=== PATIENT | female | born 1950 | race Caucasian/White ===

== ENCOUNTER 2017-05-04 08:12 | Day surgery (SDC) | payer MEDICARE ==
[~2017-05-04] VITALS: Ht 170.2 cm; Wt 122.7 kg
[2017-05-04 08:36] VITALS: BP 162/79
[2017-05-04] MEDS ORDERED: SITA1TBM PO (08:41)
[2017-05-04] MEDS ORDERED: METO5TAB5 PO (08:41)
[2017-05-04] MEDS ORDERED: DOXY100C2 PO (08:41)
[2017-05-04] MEDS ORDERED: SPIR25TA3 PO (08:41)
[2017-05-04] MEDS ORDERED: FURO40TA6 PO (08:41)
[2017-05-04] MEDS ORDERED: [UNRECOGNIZED DRUG - CODE] OP (08:55)
[2017-05-04] MEDS ORDERED: CALC0.25 PO (08:55)
[2017-05-04] MEDS ORDERED: CALC667C PO (08:55)
[2017-05-04] MEDS ORDERED: ALLO100T30 PO (08:55)
[2017-05-04] MEDS ORDERED: ATOR20TA9 PO (08:55)
[2017-05-04] MEDS ORDERED: LIRA0.6P SC (08:55)
[2017-05-04] MEDS ORDERED: Humalog Insulin Pump SC (08:55)
[2017-05-04] MEDS ORDERED: LORA-439 PO (08:55)
[2017-05-04] MEDS ORDERED: LEVO300T4 PO (08:55)
[2017-05-04] MEDS ORDERED: TRAZ100T15 PO (08:55)
[2017-05-04] MEDS ORDERED: RAMI10CA PO (08:55)
[2017-05-04] MEDS ORDERED: CHOL500050 PO (08:55)
[2017-05-04] MEDS ORDERED: [UNRECOGNIZED DRUG - OTHER] OP (08:55)
[2017-05-04] MEDS ORDERED: ASPI-650 PO (08:55)
[2017-05-04] MEDS ORDERED: CHOL2000 PO (08:55)
[2017-05-04] MEDS ORDERED: BIVALIRUDIN 250 MG ONE (09:58)
[2017-05-04] MEDS ORDERED: LIDOCAINE 2%, 20ML ONE (09:58)
[2017-05-04] MEDS ORDERED: TICAGRELOR 90 MG TABLET ONE (09:58)
[2017-05-04] MEDS ORDERED: MIDAZOLAM 1 MG/ML, 5ML ONE (09:58)
[2017-05-04] MEDS ORDERED: VERAPAMIL 2.5 MG/ML, 2ML ONE (09:58)
[2017-05-04] MEDS ORDERED: NITROGLYCERIN 5 MG/ML, 10ML ONE (09:58)
[2017-05-04] MEDS ORDERED: FENTANYL PF 100 MCG/2ML ONE (09:58)
[2017-05-04] MEDS ORDERED: HEPARIN 1,000 UNITS/ML, 10ML ONE (09:59)
[2017-05-04 10:06] LABS: ASPARTATE AMINO TRANSFERASE 21 U/L (15-37); BLOOD UREA NITROGEN 22 mg/dL (7-18)
[2017-05-04] MEDS ORDERED: LABETALOL 5MG/ML, 20ML ONE (10:51)
[2017-05-04] MEDS ORDERED: LABETALOL 5MG/ML, 20ML IVPush PRN (11:00)
[2017-05-04] MEDS ORDERED: INSULIN LISPRO SC SCH (11:30)
[2017-05-04] MEDS ORDERED: TRAZODONE 100MG TABLET PO PRN (11:30)
[2017-05-04] MEDS ORDERED: LEVOTHYROXINE SODIUM 300 MCG PO SCH (11:30)
[2017-05-04] MEDS ORDERED: [UNRECOGNIZED DRUG - OTHER] OP SCH (11:30)
[2017-05-04] MEDS ORDERED: TEMPLATE NON-FORMULARY MED. (Doxycycline Hyclate** 100 MG) PO SCH (11:30)
[2017-05-04] MEDS ORDERED: TEMPLATE NON-FORMULARY MED. (Cholecalciferol (Vitamin D3)** (Vitamin D**) 2,000 UNIT) PO SCH (11:30)
[2017-05-04] MEDS ORDERED: [UNRECOGNIZED DRUG - OTHER] OP SCH (11:30)
[2017-05-04] MEDS ORDERED: TEMPLATE NON-FORMULARY MED. (Ramipril** 10 MG) PO SCH (11:30)
[2017-05-04] MEDS ORDERED: METOLAZONE 5 MG TABLET PO PRN (11:30)
[2017-05-04] MEDS ORDERED: CALCITRIOL 0.25 MCG CAPSULE PO SCH (21:00)
[2017-05-04] MEDS ORDERED: LORATADINE 10 MG TABLET PO SCH (21:00)
[2017-05-04] MEDS ORDERED: ATORVASTATIN 20 MG TABLET PO SCH (21:00)
[2017-05-04] MEDS ORDERED: TEMPLATE NON-FORMULARY MED. (Liraglutide (Victoza 2-Pak) 1.8 MG) SC SCH (21:00)
[2017-05-05] MEDS ORDERED: ALLOPURINOL 100 MG TABLET PO SCH (09:00)
[2017-05-05] MEDS ORDERED: ASPIRIN 325 MG TABLET EC PO SCH (09:00)
[2017-05-06] MEDS ORDERED: FUROSEMIDE 40 MG TABLET PO SCH (09:00)
[2017-05-06] MEDS ORDERED: SPIRONOLACTONE 25 MG TABLET PO SCH (09:00)
== END 2017-05-04 12:43 ==
LOC: CACL 08:12
PROVIDERS: ATTEND Internal Medicine Cardiovascular Disease
DX: I25.10 Atherosclerotic heart disease of native coronary artery without angina pectoris (principal); E78.00 Pure hypercholesterolemia, unspecified; E03.9 Hypothyroidism, unspecified; E11.22 Type 2 diabetes mellitus with diabetic chronic kidney disease; I12.9 Hypertensive chronic kidney disease with stage 1 through stage 4 chronic kidney disease, or unspecified chronic kidney disease; N18.9 Chronic kidney disease, unspecified; J44.9 Chronic obstructive pulmonary disease, unspecified
CPT/HCPCS: 36415; 80053; 93460; 99156; C1769; C1894; J1644; J2250; J3010; J3490; Q9967; J0583